=== PATIENT | male | born 1975 | race Caucasian/White ===

== ENCOUNTER 2017-12-12 04:31 | Inpatient (IN) | payer BC, OTHER ==
[~2017-12-12] VITALS: Ht 182.9 cm; Wt 77.1 kg
[2017-12-12] MEDS ORDERED: IV NORMAL SALINE 1000 ML BAG IV ONE (05:00)
[2017-12-12 05:12] LABS: BASOPHILS % (AUTO) 0.2 % (0.0-2.0); EOSINOPHILS # (AUTO) 0.1 K/uL (0.0-0.7); EOSINOPHILS % (AUTO) 0.5 % (0.0-7.0); HEMATOCRIT 47.1 % (36.7-47.1); HEMOGLOBIN 16.3 g/dL (12.5-16.3); LYMPHOCYTES # (AUTO) 1.3 K/uL (20.0-40.0); LYMPHOCYTES % (AUTO) 7.3 % (20.5-51.5); MEAN CORPUSCULAR HEMOGLOBIN 31.6 uug (23.8-33.4); MEAN CORPUSCULAR HGB CONC 35 g/dL (32.5-36.3); MEAN CORPUSCULAR VOLUME 91.3 fL (73.0-96.2); MONOCYTES # (AUTO) 1.1 K/uL (2.0-10.0); MONOCYTES % (AUTO) 6.2 % (0.0-11.0); NEUTROPHILS # (AUTO) 14.7 K/uL (1.8-8.9); NEUTROPHILS % (AUTO) 85.8 % (38.5-71.5); PLATELET COUNT (AUTO) 279 K/uL (152-348); RED BLOOD CELL COUNT(AUTO) 5.16 MIL/uL (4.06-5.63); WHITE BLOOD COUNT (AUTO) 17.2 K/uL (3.6-10.2)
[2017-12-12 05:18] LABS: CREATININE 1.1 mg/dL (0.6-1.3); POTASSIUM 3.8 mmol/L (3.5-5.1)
[2017-12-12 05:25] LABS: BILIRUBIN,DIRECT 0.1 mg/dL (0.0-0.2); BILIRUBIN,TOTAL 0.5 mg/dL (0.2-1.0); TOTAL PROTEIN, SERUM 8.7 g/dL (6.4-8.2)
[2017-12-12 05:27] LABS: *BILIRUBIN,URIN NEGATIVE (NEGATIVE); *BLOOD, URINE NEGATIVE (NEGATIVE); *CLARITY,URINE CLEAR (CLEAR); *COLOR,URINE LIGHT YELLOW (YELLOW); *KETONES,URINE 2+ (NEGATIVE); *PROTEIN,URINE NEGATIVE (NEGATIVE); *UROBILINOGEN,URINE 0.2 E.U./dl (NORMAL); LEUKOCYTE ESTERASE ,URINE NEGATIVE (NEGATIVE); NITRITE, URINE NEGATIVE (NEGATIVE); PH,URINE 7.5 (5.0-8.0); UGLUCOSE NEGATIVE (NEGATIVE)
[2017-12-12 05:34] LABS: BACTERIA,URINE NONE SEEN /HPF (NONE SEEN); RBC,URINE NONE SEEN /HPF (0-3); SQUAMOUS EPITHELIAL CELL,UR NONE SEEN /HPF (NONE SEEN); WBC,URINE NONE SEEN /HPF (0-3)
[2017-12-12 08:05] VITALS: BP 130/82
[2017-12-12] MEDS ORDERED: BUPIVACAINE 0.25% 30 ML VIAL ONE (09:29)
[2017-12-12] MEDS ORDERED: POTASSIUM CHLORIDE 20 MEQ in IV D5 1/2 NS 1000 ML 1,000 ML IV PRN (13:00)
[2017-12-12 13:15] VITALS: BP 116/78
[2017-12-12] MEDS ORDERED: HYDROCODONE/APAP 5-325MG TABLET PO PRN (13:15)
[2017-12-12] MEDS ORDERED: MORPHINE SULFATE 2 MG/1 ML DISP.SYRIN IV PRN (13:15)
[2017-12-12] MEDS ORDERED: HYDROCODONE/APAP 10-325 MG TABLET PO PRN (13:15)
[2017-12-12 15:44] VITALS: BP 123/87
[2017-12-12] MEDS ORDERED: CEPH-570 PO (17:36)
[2017-12-12] MEDS ORDERED: HYDR-3326 PO (17:36)
[2017-12-12] MEDS ORDERED: CEFAZOLIN 1 G in PREMIXED 1 EACH IV SCH (18:00)
[2017-12-12] MEDS ORDERED: PROPOFOL 200 MG/20 ML BOTTLE IV ONE (18:59)
[2017-12-12] MEDS ORDERED: ONDANSETRON 4 MG/2 ML VIAL IV ONE (18:59)
[2017-12-12] MEDS ORDERED: VECURONIUM BROMIDE 10 MG VIAL IV ONE (18:59)
[2017-12-12] MEDS ORDERED: NEOSTIGMINE METHYLSULFATE 10 MG/10 ML VIAL IV ONE (18:59)
[2017-12-12] MEDS ORDERED: DEXAMETHASONE SOD PHOSPHATE 4 MG INJ IV ONE (18:59)
[2017-12-12] MEDS ORDERED: IV LACTATED RINGERS SOLUTION 1,000 ML BAG IV ONE (18:59)
[2017-12-12] MEDS ORDERED: CEFAZOLIN 1 G VIAL MC ONE (18:59)
[2017-12-12] MEDS ORDERED: SEVOFLURANE 250 ML BOTTLE IH ONE (18:59)
[2017-12-12] MEDS ORDERED: KETOROLAC TROMETHAMINE 30 MG INJ IM ONE (18:59)
[2017-12-12] MEDS ORDERED: LIDOCAINE HCL 1% 20 ML VIAL MC ONE (18:59)
[2017-12-12] MEDS ORDERED: GLYCOPYRROLATE 0.2 MG/ML VIAL MC ONE (18:59)
[2017-12-13] MEDS ORDERED: CEFAZOLIN 1 G in PREMIXED 1 EACH IV SCH (10:00)
== END 2017-12-12 19:00 | disposition home or self-care (01) | DRG 339 ==
LOC: ER 04:34 → MED 07:57
PROVIDERS: ADMIT Internal Medicine; ATTEND Internal Medicine
PROC: 0DTJ4ZZ Resection of Appendix, Percutaneous Endoscopic Approach (ICD-10-PCS; principal; 2017-12-12 11:05)
DX: K35.3 Acute appendicitis with localized peritonitis (principal); J98.11 Atelectasis; R73.9 Hyperglycemia, unspecified; Z98.890 Other specified postprocedural states
CPT/HCPCS: 36415; 71045; 83690; 85025; 85730; 93005; A4663; J0690; J1100; J1885; J2405; J2710; J3480; J3490; J7030; J7120